=== PATIENT | female | born 1965 | race Caucasian/White ===

== ENCOUNTER 2021-08-09 20:48 | Observation (INO) | payer OTHER ==
[~2021-08-09] VITALS: Ht 160 cm; Wt 113.4 kg
[~2021-08-09 20:48] MED LIST: ASPI81CH PO; ASPI81EC PO; ATOR10; BP MED; CIPRO500 MG PO; CRUTCH4 XX; CYCL10 PO; Carvedilol12.5 MG PO; FISH1000; FURO20 PO; Flagyl500 MG PO; GABA300 PO; IBUP600 PO; MULVITMIND; Metformin HCl500 MG PO; Norco 5-325 Ta1 EACH PO; POTCHL20ER PO; PRAV20 PO; PROPRANOLOL PO; Percocet 5-3251 EACH PO; Ultram50 MG PO; ZOLP10 PO; ZOLP5; ZOLP5 PO; Zofran Odt4 MG SL
[2021-08-09 21:43] LABS: BASOPHILS ABSOLUTE AUTO 0.08 K/mm3 (0.00-0.23); BASOPHILS PERCENT AUTO 0 % (0-2); EOSINOPHILS PERCENT AUTO 0 % (0-6); Hematocrit 41.7 % (33.0-51.0); IMMATURE GRAN PERCENT AUTO 1 % (0-1); LYMPHOCYTES ABSOLUTE AUTO 3.35 K/mm3 (0.84-5.20); LYMPHOCYTES PERCENT AUTO 16 % (21-46); MONOCYTES ABSOLUTE AUTO 1.02 K/mm3 (0.16-1.47); MONOCYTES PERCENT AUTO 5 % (4-13); Mean Corpuscular HGB 24.6 pg (26.0-34.0); Mean Corpuscular HGB Conc 31.2 g/dL (31.5-36.5); Mean Corpuscular Volume 79 fL (80-100); Mean Platelet Volume 9.2 fL (9.1-12.4); NEUTROPHILS PERCENT AUTO 78 % (41-73); Platelet Count 446 K/mm3 (150-400); RDW Coefficient Variation 17.8 % (11.7-14.2); Red Blood Cell Count 5.28 M/mm3 (3.80-5.20); White Blood Cell Count 20.95 K/mm3 (4.00-11.30)
[2021-08-09 22:19] LABS: Alanine Aminotransfer (ALT/SGP 24 U/L (12-78); Albumin, Blood 3.3 g/dL (3.4-5.0); Albumin/Globulin Ratio 0.8 (0.8-1.8); Alk Phos 169 U/L (50-136); Anion Gap 6 mmol/L (6-16); Aspartate Aminotrans (AST/SGOT 14 U/L (12-37); Bilirubin, Total 0.5 mg/dL (0.1-1.0); Blood Urea Nitrogen 13 mg/dL (8-24); Bun/Creatinine Ratio 14.3 (12.0-20.0); CO2, Blood 31 mmol/L (21-32); Chloride, Blood 100 mmol/L (98-108); Creatinine, Blood 0.91 mg/dL (0.40-1.00); Globulin, Blood 4.1 g/dL (2.2-4.0); Glomerular Filtration Rate >60 (60-); Glucose, Blood 134 mg/dL (70-99); Potassium, Blood 4.1 mmol/L (3.5-5.5); Sodium, Blood 137 mmol/L (136-145); Total Protein, Blood 7.4 g/dL (6.4-8.2)
[2021-08-09 22:39] LABS: Source, Urine Clean Catch
[2021-08-09] MEDS ORDERED: ZOLP5 (22:40)
[2021-08-09] MEDS ORDERED: TRIA50 PO (22:40)
[2021-08-09] MEDS ORDERED: SPIRONOLACTONE50 MG PO (22:40)
[2021-08-09 22:42] LABS: Bilirubin, Urine Neg (Neg); Blood, Urine 3+ (Neg); Glucose Qualitative, Urine Neg (Neg); Ketones, Urine Neg (Neg); Leukocyte Esterase, Urine 1+ (Neg); Nitrite, Urine Neg (Neg); Protein, Urine Neg (Neg); Urobilinogen, Urine NORM (Normal)
[2021-08-09 22:49] LABS: Appearance, Urine Clear (Clear); Color, Urine Yellow (P-Yellow)
[2021-08-09 22:50] LABS: Bacteria Mod /hpf; Red Blood Cells, Urine 0-2 /hpf (0-2); Squamous Epithelial Cells Few /hpf (Few)
[2021-08-10 00:36] LABS: Influenza A, PCR NEGATIVE (NEGATIVE); Influenza B, PCR NEGATIVE (NEGATIVE); Resp Syncytial Virus, PCR NEGATIVE (NEGATIVE); SARS-Cov-2 (COVID-19) PCR, MMC NEGATIVE (NEGATIVE)
--- NOTE | 2021-08-10 01:00 | NUR ---
PT ARRIVED TO UNIT PT ARRIVED TO UNIT VIA BED, KILN STACKER ASSISTED W/ SBA TRANSFER. PT A&O X4, MINIMAL PAIN-PLAN TO MEDICATE PER EMAR PRN, AND FLUIDS RUNNING. REPORT RECIEVED VIA TIFFANIE NEWTON RN. PT ORIENTATED TO ROOM, CALL LIGHT W/IN REACH. VSS.
--- NOTE | 2021-08-10 04:26 | NUR ---
SHIFT SUMMARY PT A&O X4 & IN PLEASENT MOOD SINCE ARRIVAL. PT CURRENTLY NPO. STEADY GAIT W/ TRANSFER. DENIES N/V @ THIS TIME. BT PRESENT IN ALL 4 Q'S. TENDERNESS W/ LIGHT PALPATION TO ABD. VSS. CALL LIGHT W/IN REACH.
--- NOTE | 2021-08-10 14:44 | NUR ---
PT TRANSFERED TO [facility] FROM FLOOR VIA GURNY. History, Chart, Medications and Allergies reviewed before start of procedure. Lungs clear T/O to Auscultation. Patient confirms NPO status and agrees with scheduled surgery. Pre-Op teaching done. Pt verbalizes understanding.
--- NOTE | 2021-08-10 16:13 | NUR ---
08/10/21 1613 Rahsi Hanna PATIENT ON SCHEDULED ANTIBIOTICS
--- NOTE | 2021-08-10 17:30 | NUR ---
POST OP ARRIVES TO UNIT, STANDS TO TRANSFER TO BED w/ SBA. ALERT, ORIENTED, PLEASANT. DENIES PAIN OR N/V. ABD LAP SITES x 3. NO DRNG OR BRUISING NOTED TO SITES. LUNGS CLEAR BUT DIM IN BASES. 2L NC. CLEAR LQ's & SALTINES GIVEN. DECLINES PAIN MEDS.
--- NOTE | 2021-08-11 06:50 | NUR ---
POD 1 S/P LAP APPY. PT VSS T/O NIGHT, SATS >90% ON RA. INCISIONS CDI. PAIN MGD W/1 NORCO W/REP RELIEF. PT TRACI REG PO, NO C/O N/V, REP NO FLATUS YET. PT VOIDING URINE W/O DIFFICULTY. PT UP W/SBA, TRACI WELL. PT USING I/S AT BEDSIDE.
--- NOTE | 2021-08-11 10:11 | NUR ---
REPORTS EATING A REGULAR BREAKFAST THIS AM, STATES FEELING "BLOATED" NOW AND SOME NAUSEA, REFUSED ANY ANTIEMETIC AT THIS TIME, ENCOURAGED TO AMBULATE DOWN THE HALLS, 1 NORCO GIVEN FOR C/O 10/20 ABD PAIN, PT STATES WILL AMBULATE AFTER TAKING PAIN MED, CONT. TO MONITOR FOR ANY CHANGES.
[2021-08-11] MEDS ORDERED: AMOCLA875 PO (14:38)
[2021-08-11] MEDS ORDERED: Norco 5-325 Ta1 EACH PO (14:39)
--- NOTE | 2021-08-11 15:03 | NUR ---
DR. ADAIR IN TO SEE PT, AMBULATED DOWN HALLS TODAY, REPORTS FEELING BETTER, DC INSTRUCTIONS GIVEN, VERBALIZED UNDERSTANDING.
--- NOTE | 2021-08-11 15:03 | NUR ---
Pt. was alert and in bed. Pt. welcomed my "cold-call" visit. Pt. reported that she hoped to be discharged soon. PT. did not demonstrate spiritual distress. Established rapport and explored issues of catracho and belief. Pt. displayed evidence of resolve and motivation to heal. Pt. verbalized receptivity to certified alcohol counselor and gratitude for both the care she received and the visit. Prayed with pt.
== END 2021-08-11 15:31 | disposition home or self-care (01) ==
LOC: ER 20:48 → SURS 23:42 → ER 08-10 00:57 → SURS 08-10 01:17
PROVIDERS: Emergency Medicine; Physician Assistant; ADMIT Surgery
DX: K35.80 Unspecified acute appendicitis (principal); I10 Essential (primary) hypertension; R73.03 Prediabetes; E66.01 Morbid (severe) obesity due to excess calories; G47.33 Obstructive sleep apnea (adult) (pediatric); K76.0 Fatty (change of) liver, not elsewhere classified; Z90.49 Acquired absence of other specified parts of digestive tract; Z87.891 Personal history of nicotine dependence; Z20.822 Contact with and (suspected) exposure to COVID-19; Z68.41 Body mass index [BMI] 40.0-44.9, adult
CPT/HCPCS: 0241U; 36415; 74176; 80053; 81001; 83690; 85025; 87086; 93005; 93010; 94760; 96374; 96375; 99285-25; A9270; J0295; J0330; J1100; J1170; J1885; J2310; J2405; J2704; J3010; J7030; J7120

== ENCOUNTER 2023-07-02 21:04 | Inpatient (IN) | payer OTHER ==
[~2023-07-02] VITALS: Ht 160 cm; Wt 108.6 kg
[~2023-07-02 21:04] MED LIST changes: +AMOCLA875 PO; +SPIRONOLACTONE50 MG PO; +TRIA50 PO
[2023-07-02 21:41] LABS: BASOPHILS ABSOLUTE AUTO 0.07 K/mm3 (0.00-0.23); BASOPHILS PERCENT AUTO 1 % (0-2); EOSINOPHILS ABSOLUTE AUTO 0.01 K/mm3 (0.00-0.68); EOSINOPHILS PERCENT AUTO 0 % (0-6); Hematocrit 39.2 % (33.0-51.0); Hemoglobin 11.9 g/dL (11.5-16.0); IMMATURE GRAN ABSOLUTE AUTO 0.08 K/mm3 (0.00-0.10); IMMATURE GRAN PERCENT AUTO 1 % (0-1); LYMPHOCYTES ABSOLUTE AUTO 2.88 K/mm3 (0.84-5.20); LYMPHOCYTES PERCENT AUTO 19 % (21-46); MONOCYTES ABSOLUTE AUTO 0.83 K/mm3 (0.16-1.47); MONOCYTES PERCENT AUTO 6 % (4-13); Mean Corpuscular HGB 23.8 pg (26.0-34.0); Mean Corpuscular HGB Conc 30.4 g/dL (31.5-36.5); Mean Corpuscular Volume 78 fL (80-100); Mean Platelet Volume 9.8 fL (9.1-12.4); NEUTROPHILS ABSOLUTE AUTO 11.05 K/mm3 (1.96-9.15); NEUTROPHILS PERCENT AUTO 74 % (41-73); Platelet Count 432 K/mm3 (150-400); RDW Coefficient Variation 17.7 % (11.7-14.2); RDW Standard Deviation 49.7 fL (35.1-46.3); Red Blood Cell Count 5.01 M/mm3 (3.80-5.20); White Blood Cell Count 14.92 K/mm3 (4.00-11.30)
[2023-07-02 22:01] LABS: Albumin, Blood 3.3 g/dL (3.4-5.0); Albumin/Globulin Ratio 0.7 (0.8-1.8); Bilirubin, Total 0.4 mg/dL (0.1-1.0); Bun/Creatinine Ratio 18.6 (12.0-20.0); Calcium, Blood 8.9 mg/dL (8.5-10.1); Creatinine, Blood 0.86 mg/dL (0.40-1.00); Globulin, Blood 4.5 g/dL (2.2-4.0); Potassium, Blood 4.9 mmol/L (3.5-5.5); Total Protein, Blood 7.8 g/dL (6.4-8.2)
[2023-07-03 03:02] VITALS: BP 146/93
[2023-07-03 03:36] LABS: BASOPHILS ABSOLUTE AUTO 0.07 K/mm3 (0.00-0.23); BASOPHILS PERCENT AUTO 0 % (0-2); EOSINOPHILS ABSOLUTE AUTO 0.01 K/mm3 (0.00-0.68); EOSINOPHILS PERCENT AUTO 0 % (0-6); Hematocrit 38.3 % (33.0-51.0); Hemoglobin 11.6 g/dL (11.5-16.0); IMMATURE GRAN ABSOLUTE AUTO 0.07 K/mm3 (0.00-0.10); IMMATURE GRAN PERCENT AUTO 0 % (0-1); LYMPHOCYTES PERCENT AUTO 21 % (21-46); MONOCYTES ABSOLUTE AUTO 1.09 K/mm3 (0.16-1.47); MONOCYTES PERCENT AUTO 7 % (4-13); Mean Corpuscular HGB 23.7 pg (26.0-34.0); Mean Corpuscular HGB Conc 30.3 g/dL (31.5-36.5); Mean Corpuscular Volume 78 fL (80-100); Mean Platelet Volume 9.8 fL (9.1-12.4); NEUTROPHILS ABSOLUTE AUTO 11.68 K/mm3 (1.96-9.15); NEUTROPHILS PERCENT AUTO 72 % (41-73); Platelet Count 414 K/mm3 (150-400); RDW Coefficient Variation 17.2 % (11.7-14.2); RDW Standard Deviation 48.9 fL (35.1-46.3); White Blood Cell Count 16.32 K/mm3 (4.00-11.30)
[2023-07-03 04:13] LABS: Albumin, Blood 3.4 g/dL (3.4-5.0); Albumin/Globulin Ratio 0.8 (0.8-1.8); Bilirubin, Total 0.4 mg/dL (0.1-1.0); Bun/Creatinine Ratio 20.5 (12.0-20.0); Calcium, Blood 8.5 mg/dL (8.5-10.1); Creatinine, Blood 0.78 mg/dL (0.40-1.00); Globulin, Blood 4.4 g/dL (2.2-4.0); Potassium, Blood 3.7 mmol/L (3.5-5.5); Total Protein, Blood 7.8 g/dL (6.4-8.2)
[2023-07-03 05:40] LABS: Source, Urine Clean Catch
[2023-07-03 05:44] LABS: Appearance, Urine Clear (Clear); Bilirubin, Urine Neg (Neg); Blood, Urine 2+ (Neg); Glucose Qualitative, Urine Neg (Neg); Ketones, Urine Neg (Neg); Leukocyte Esterase, Urine Neg (Neg); Nitrite, Urine Neg (Neg); Protein, Urine Neg (Neg); Urobilinogen, Urine NORM (Normal)
[2023-07-03 05:50] LABS: Color, Urine Pale Yellow (P-Yellow)
[2023-07-03 05:57] LABS: Red Blood Cells, Urine 0-2 /hpf (0-2)
[2023-07-03 05:58] LABS: Bacteria Rare /hpf
[2023-07-03 05:59] LABS: Squamous Epithelial Cells Few /hpf (Few)
[2023-07-03 06:01] LABS: Hyaline Casts 0-2 /lpf (0-2)
[2023-07-03 08:10] VITALS: BP 143/95
[2023-07-03 16:17] VITALS: BP 142/79
[2023-07-03 19:15] VITALS: BP 143/76
[2023-07-04 04:30] VITALS: BP 143/73
[2023-07-04 05:10] LABS: BASOPHILS ABSOLUTE AUTO 0.06 K/mm3 (0.00-0.23); BASOPHILS PERCENT AUTO 1 % (0-2); EOSINOPHILS ABSOLUTE AUTO 0.01 K/mm3 (0.00-0.68); EOSINOPHILS PERCENT AUTO 0 % (0-6); Hemoglobin 11.8 g/dL (11.5-16.0); IMMATURE GRAN ABSOLUTE AUTO 0.07 K/mm3 (0.00-0.10); IMMATURE GRAN PERCENT AUTO 1 % (0-1); LYMPHOCYTES ABSOLUTE AUTO 2.44 K/mm3 (0.84-5.20); LYMPHOCYTES PERCENT AUTO 20 % (21-46); MONOCYTES ABSOLUTE AUTO 0.85 K/mm3 (0.16-1.47); MONOCYTES PERCENT AUTO 7 % (4-13); Mean Corpuscular HGB 23.3 pg (26.0-34.0); Mean Corpuscular HGB Conc 30.3 g/dL (31.5-36.5); Mean Corpuscular Volume 77 fL (80-100); Mean Platelet Volume 9.7 fL (9.1-12.4); NEUTROPHILS ABSOLUTE AUTO 8.95 K/mm3 (1.96-9.15); NEUTROPHILS PERCENT AUTO 72 % (41-73); Platelet Count 369 K/mm3 (150-400); RDW Coefficient Variation 17.2 % (11.7-14.2); RDW Standard Deviation 47.4 fL (35.1-46.3); Red Blood Cell Count 5.07 M/mm3 (3.80-5.20); White Blood Cell Count 12.38 K/mm3 (4.00-11.30)
--- NOTE | 2023-07-04 05:20 | NUR ---
REPORT RECEIVED VERIFIED, A/O IND IN ROOM. VSS AND IS CALLING TO MAKE NEEDS MET. PT IN GOOD SPIRITS AND WILL POSSIBLY BE DCED IN THE MORENING AFTER TORITO SCAN, TRAVON PT NPO. NO CHANGE IN CARDIAC CONDITION
[2023-07-04 05:37] LABS: Bun/Creatinine Ratio 20.8 (12.0-20.0); Calcium, Blood 8.5 mg/dL (8.5-10.1); Creatinine, Blood 0.63 mg/dL (0.40-1.00); Magnesium, Blood 2.1 mg/dL (1.6-2.4); Phosphorus, Blood 3.9 mg/dL (2.5-4.9); Potassium, Blood 3.2 mmol/L (3.5-5.5)
[2023-07-04 07:33] VITALS: BP 160/89
[2023-07-04 09:47] LABS: CHOL/HDL RATIO 4.7; Cholesterol 150 mg/dL (50-200); HDL Cholesterol 32 mg/dL (>39); LDL/HDL RATIO 2.6; Low Density Lipoprotein Chol 84 mg/dL (0-110); Triglycerides 169 mg/dL (30-160); Very Low Density Lipoprot Chol 33 mg/dL (6-32)
[2023-07-04 16:55] VITALS: BP 142/82
--- NOTE | 2023-07-04 17:57 | NUR ---
SHIFT SUMMARY: NO ACUTE EVENTS. NO EVENTS ON TELEMETRY, SR 60-70'S. DENIED CHEST PAIN. SOB HAS IMPROVED SINCE YESTERDAY. POTASSIUM REPLACED. HAD FIRST HALF OF LEXISCAN TODAY. INDEPENDENT IN ROOM.
[2023-07-04 19:26] VITALS: BP 149/80
[2023-07-05 04:18] VITALS: BP 155/90
[2023-07-05 05:48] LABS: BASOPHILS ABSOLUTE AUTO 0.06 K/mm3 (0.00-0.23); BASOPHILS PERCENT AUTO 1 % (0-2); EOSINOPHILS PERCENT AUTO 0 % (0-6); Hematocrit 42.6 % (33.0-51.0); Hemoglobin 13.1 g/dL (11.5-16.0); IMMATURE GRAN ABSOLUTE AUTO 0.07 K/mm3 (0.00-0.10); IMMATURE GRAN PERCENT AUTO 1 % (0-1); LYMPHOCYTES ABSOLUTE AUTO 2.61 K/mm3 (0.84-5.20); LYMPHOCYTES PERCENT AUTO 20 % (21-46); MONOCYTES PERCENT AUTO 9 % (4-13); Mean Corpuscular HGB 23.7 pg (26.0-34.0); Mean Corpuscular HGB Conc 30.8 g/dL (31.5-36.5); Mean Corpuscular Volume 77 fL (80-100); NEUTROPHILS ABSOLUTE AUTO 9.13 K/mm3 (1.96-9.15); NEUTROPHILS PERCENT AUTO 70 % (41-73); Platelet Count 428 K/mm3 (150-400); RDW Coefficient Variation 17.7 % (11.7-14.2); RDW Standard Deviation 46.4 fL (35.1-46.3); Red Blood Cell Count 5.53 M/mm3 (3.80-5.20); White Blood Cell Count 12.97 K/mm3 (4.00-11.30)
[2023-07-05 06:13] LABS: Bun/Creatinine Ratio 28.8 (12.0-20.0); Calcium, Blood 8.5 mg/dL (8.5-10.1); Creatinine, Blood 0.66 mg/dL (0.40-1.00); Potassium, Blood 3.6 mmol/L (3.5-5.5)
--- NOTE | 2023-07-05 06:39 | NUR ---
SHIFT SUMMARY PT IS HERE WITH NEW ONSET CHF. PT IS ALERT AND ORIENTED AND IS INDEPENDENT IN HER ROOM. PT HAS BEEN NPO SINCE MIDNIGHT FOR THE SECOND PART OF HER STRESS TEST THIS AM. TELEMETRY DESK REPORTS SINUS RHYTHM. NO ACUTE EVENTS OCCURRED THROUGHOUT THE SHIFT, VITAL SIGNS HAVE BEEN STABLE. BED IS IN LOWEST POSITION, CALL LIGHT IS WITHIN REACH.
[2023-07-05 07:17] VITALS: BP 146/86
[2023-07-05 16:46] VITALS: BP 141/90
--- NOTE | 2023-07-05 17:18 | NUR ---
SHIFT SUMMARY; PATIENT HAD 2ND PART OF STRESS TEST. CONSULT FOR CARDIOLOGY IS ORDERED AFTER TEST AND IS NOTIFIED VIA ANSWERING SERVICE. PER PATIENT WILL GO TO THE PROMOTIONS SPECIALIST IN THE AM TOMORROW. FAMILY MEMBERS VISIT THIS PATIENT TODAY. PRESTIDIGITATOR GOES TO ROOM AND STRONG SMELL OF CIGARETTES NOTED. SMELL IS OVERWHELMING AND THIS RN ASKS SON IF HE HAS BRICK OFF BEARER AND CIGARETTES HE SAYS YES BUT WILL NOT SURRENDER THEM. THIS RN ASKS HIM TO LEAVE HOSPITAL. HE COMPLIES. PATIENT DENIES HER SON OR HIS GIRLFRIEND WERE SMOKING.
[2023-07-05 19:27] VITALS: BP 136/83
[2023-07-06] VITALS (13 sets, daily range): BP systolic 108–163; BP diastolic 65–87
[2023-07-06 05:24] LABS: BASOPHILS ABSOLUTE AUTO 0.09 K/mm3 (0.00-0.23); BASOPHILS PERCENT AUTO 1 % (0-2); EOSINOPHILS ABSOLUTE AUTO 0.01 K/mm3 (0.00-0.68); EOSINOPHILS PERCENT AUTO 0 % (0-6); Hematocrit 45.6 % (33.0-51.0); IMMATURE GRAN ABSOLUTE AUTO 0.06 K/mm3 (0.00-0.10); IMMATURE GRAN PERCENT AUTO 0 % (0-1); LYMPHOCYTES ABSOLUTE AUTO 3.12 K/mm3 (0.84-5.20); LYMPHOCYTES PERCENT AUTO 20 % (21-46); MONOCYTES ABSOLUTE AUTO 1.24 K/mm3 (0.16-1.47); MONOCYTES PERCENT AUTO 8 % (4-13); Mean Corpuscular HGB 23.5 pg (26.0-34.0); Mean Corpuscular HGB Conc 30.7 g/dL (31.5-36.5); Mean Corpuscular Volume 76 fL (80-100); Mean Platelet Volume 9.6 fL (9.1-12.4); NEUTROPHILS ABSOLUTE AUTO 11.09 K/mm3 (1.96-9.15); NEUTROPHILS PERCENT AUTO 71 % (41-73); Platelet Count 501 K/mm3 (150-400); RDW Coefficient Variation 18.2 % (11.7-14.2); RDW Standard Deviation 46.2 fL (35.1-46.3); Red Blood Cell Count 5.97 M/mm3 (3.80-5.20); White Blood Cell Count 15.61 K/mm3 (4.00-11.30)
[2023-07-06 05:54] LABS: Bun/Creatinine Ratio 26.7 (12.0-20.0); Calcium, Blood 8.9 mg/dL (8.5-10.1); Creatinine, Blood 0.64 mg/dL (0.40-1.00); Potassium, Blood 3.7 mmol/L (3.5-5.5)
--- NOTE | 2023-07-06 06:44 | NUR ---
SHIFT SUMMERY, PT RESTING IN BED. PT HAS CALL LIGHT IN REACH. PT HAS NEW IV TO LEFT HAND AREA AND PT HAS BEEN NPO FROM 0000 ON.
--- NOTE | 2023-07-06 11:10 | NUR ---
REPROT RECIEVED FROM MARIA LUISA MARTINEZ AT 100. PT PAULA IN PROCEDURE.
--- NOTE | 2023-07-06 11:39 | NUR ---
PT ARRIVED FROM [facility] AT 1130 VIA WHEELCHAIR AND RA. REPORT RECIEVED FROM CATHJESSENIA RN AT BEDSIDE. PT ABLE TO TRANSFER SELF FROM WHEELCHAIR AND TO BED ON HER OWN. RIGHT RADIAL SITE C/D/I AND WITHOUT HEMATOMA. PT REPORTS TENDERNESS ABOVE AND BELOW SITE. PT INSTRUCTED NOT TYRA RIGHT WRIST AND INFORMED ABOUT FREQUENT VITALS AND ASSESSMENTS.
--- NOTE | 2023-07-06 17:03 | NUR ---
SHIFT SUMMARY PT A/OX 4 AND COOPERATIVE OF CARE. VSS SINCE ARRIVAL TO UNIT FROM [facility]. PT SATS IN THE 90'S ON RA, NO REPORT OF SOB/DYSPNEA. NO REPORT OF CHEST PAIN/PRESSURE SINCE ARRIVAL TO UNIT. PT RECIEVED AGIO TODAY, NO INTERVENTIONS. PT ABLE TO EXPRESS NEEDS AND CALLS APPROPIATE. RIGHT RADIAL SITE C/D/I. PT EXPRESSED ANXIETY ABOUT WNATING TO GO HOME, TOLD PT THAT POSSIBLE IN THE MORNING DUE TO DOSE CHANGES TO MEDS. PT INDEPENDENT IN ROOM.
[2023-07-07 01:01] VITALS: BP 135/69
[2023-07-07 03:56] VITALS: BP 142/88
--- NOTE | 2023-07-07 04:18 | NUR ---
SUMMARY NO NEW ISSUES NOTED. PT HAS BEEN SLEEPING FOR MOST OF SHIFT. PT HAS BEEN UP TO VOID. PT HAD A ALVA AND TYLENOL WAS ORDERED. PT SLEEPING AND IN NO DISTRESS. CALL LIGHT IN REACH.
[2023-07-07 04:49] LABS: Bun/Creatinine Ratio 22.2 (12.0-20.0); Calcium, Blood 8.9 mg/dL (8.5-10.1); Creatinine, Blood 0.72 mg/dL (0.40-1.00); Potassium, Blood 3.8 mmol/L (3.5-5.5)
[2023-07-07 08:01] VITALS: BP 118/82
[2023-07-07] MEDS ORDERED: ATOR40TA PO (12:18)
[2023-07-07] MEDS ORDERED: FURO40 PO (12:19)
[2023-07-07] MEDS ORDERED: ENTRESTO 97 MG1 EACH PO (12:19)
[2023-07-07] MEDS ORDERED: JARDIANCE25 MG PO (12:19)
[2023-07-07] MEDS ORDERED: Carvedilol12.5 MG PO (12:19)
[2023-07-07] MEDS ORDERED: ALDACTONE25 MG PO (12:21)
--- NOTE | 2023-07-07 14:32 | NUR ---
DISCHARGE UPDATE DISCHARGE PACKET GONE OVER WITH PT AND PT DAUGHTER 1400. PT DISHCARGED AT 1420 VIA WHEELCHAIR AND ON RA. PT ABLE TO TRANSFER SELF TO AND FROM WHEELCHAIR ON HER OWN, TOLERATED WELL. PT INSTRUCTED NOT TO USE RIGHT ARM FOR HEAVY LEIFTING OR TO ALLOW RIGHT ARM TO BE SUBMERGED IN WATER. PT INSTRUCTED TO APPLY CONSTANT PRESSURE IF RADIAL SITE BLEEDS AND TO RETURN TO ED IF BLEEDING DOES NOT STOP, PT AGREED. PT BELONGINGS AND DISCHARGE PACKET WITH PT AT TIME OF DISCHARGE.
== END 2023-07-07 14:31 | disposition home or self-care (01) | DRG 286 ==
LOC: ER 21:04 → MEDS 21:05 → PCU 07-06 11:29
PROVIDERS: Internal Medicine; Internal Medicine Cardiovascular Disease; Physician Assistant; ADMIT Internal Medicine
PROC: B2111ZZ Fluoroscopy of Multiple Coronary Arteries using Low Osmolar Contrast (ICD-10-PCS; principal; 2023-07-06)
PROC: 4A023N8 Measurement of Cardiac Sampling and Pressure, Bilateral, Percutaneous Approach (ICD-10-PCS; 2023-07-06)
PROC: 02HP32Z Insertion of Monitoring Device into Pulmonary Trunk, Percutaneous Approach (ICD-10-PCS; 2023-07-06)
PROC: 4A133B3 Monitoring of Arterial Pressure, Pulmonary, Percutaneous Approach (ICD-10-PCS; 2023-07-06)
PROC: 4A1239Z Monitoring of Cardiac Output, Percutaneous Approach (ICD-10-PCS; 2023-07-06)
DX: I11.0 Hypertensive heart disease with heart failure (principal); I50.41 Acute combined systolic (congestive) and diastolic (congestive) heart failure; I42.0 Dilated cardiomyopathy; E11.9 Type 2 diabetes mellitus without complications; E66.01 Morbid (severe) obesity due to excess calories; E78.5 Hyperlipidemia, unspecified; F19.10 Other psychoactive substance abuse, uncomplicated; R79.1 Abnormal coagulation profile; I27.20 Pulmonary hypertension, unspecified; I25.10 Atherosclerotic heart disease of native coronary artery without angina pectoris; Z68.39 Body mass index [BMI] 39.0-39.9, adult; Z87.891 Personal history of nicotine dependence
CPT/HCPCS: 36415; 71046; 71260; 76937; 78452; 80048; 80053; 80061; 81001; 83036; 83735; 83880; 84100; 84484; 85025; 85379; 93005; 93010; 93017; 93460; 93970; 96372; 96374; 96376; 99152; 99285-25; A9270; A9500; C1769; C1887; C1894; C8929; G0378; J0706; J1644; J1650; J1940; J2250; J2785; J3010; J7030; J7050; Q9957; Q9967

== ENCOUNTER 2025-06-23 07:41 | Day surgery (SDC) | payer OTHER ==
[~2025-06-23] VITALS: Ht 160 cm; Wt 93.3 kg
[2025-06-23] VITALS (12 sets, daily range): BP systolic 99–136; BP diastolic 51–86
[~2025-06-23 07:41] MED LIST changes: +ALDACTONE25 MG PO; +ATOR40TA PO; +CeFAZolin Sodium 2,000 MG in NS 100 ML IV SCH; +Chlorhexidine Mouth Care 15 ML UDC MT SCH; +ENTRESTO 97 MG1 EACH PO; +JARDIANCE25 MG PO; +OZEMPIC0.25 MG/02 SC; +Ropivacaine 0.5% HCl/Pf 123.125 MG,EPINEPHrine HCL 0.25 MG,Ketorolac Tromethamine 15 MG... INFIL SCH; +Tranexamic Acid 100 ML IV SCH
--- NOTE | 2025-06-23 08:16 | NUR ---
Ambulatory in Day Surgery WITH CANE. Pre-Op teaching done. Pt verbalizes understanding. History, Chart, Medications and Allergies reviewed before start of procedure. Patient States Post-Procedure ride home has been arranged. Patient confirms NPO status and agrees with scheduled surgery.
[2025-06-23] MEDS ORDERED: FLU VACC TS2025-26(6MOS UP)/PF 45 MCG/0.5 ML SYRINGE IM SCH (09:40)
[2025-06-23] MEDS ORDERED: Ondansetron HCl 2 MG / ML 2ML Vial ONE (09:45)
[2025-06-23] MEDS ORDERED: Metoclopramide HCl 5MG / ML 2ML Vial ONE (09:45)
[2025-06-23] MEDS ORDERED: HYDROmorphone HCl/Pf 1MG SYR IV PRN ×2 (09:45→11:50)
[2025-06-23] MEDS ORDERED: Prochlorperazine Edisylate 10 mg Vial IV PRN (09:50)
[2025-06-23] MEDS ORDERED: Metoclopramide HCl 5MG / ML 2ML Vial IV PRN ×2 (09:50→11:50)
[2025-06-23] MEDS ORDERED: Magnesium Hydroxide Conc 10 ML UDC PO PRN (09:50)
[2025-06-23] MEDS ORDERED: Ondansetron HCl 2 MG / ML 2ML Vial IV PRN ×2 (09:50→11:45)
[2025-06-23] MEDS ORDERED: Midazolam HCl 1MG / ML 2ML Vial ONE (10:04)
[2025-06-23] MEDS ORDERED: ePHEDrine Sulfate 50 MG/ML 1ML Injection ONE (10:38)
[2025-06-23] MEDS ORDERED: Insulin Regular 100 UNIT/ML 10ML Vial SC SCH (11:30)
[2025-06-23] MEDS ORDERED: FentaNYL Citrate 50 MCG/ML 2 ML Injection ONE (11:45)
[2025-06-23] MEDS ORDERED: Morphine Sulfate 4 MG/1 ML Injection IV PRN (11:45)
[2025-06-23] MEDS ORDERED: FentaNYL Citrate 50 MCG/ML 2 ML Injection IV PRN ×2 (11:45→11:50)
[2025-06-23] MEDS ORDERED: ePHEDrine Sulfate 50 MG/ML 1ML Injection IV PRN (11:50)
--- NOTE | 2025-06-23 13:12 | NUR ---
POST OP: REPORT RECEIVED FROM CREATIVE LEAD. PT TO UNIT AT 1230, A/O, DROWSY BUT AWAKES EASILY, PT SAT UP AND ATE LUNCH. DENIES PAIN, SURGICAL SITE WNL. VSS CALL LIGHT IN REACH
[2025-06-23] MEDS ORDERED: ASPI81CH PO (14:05)
[2025-06-23] MEDS ORDERED: CeFAZolin Sodium 2,000 MG in NS 100 ML IV SCH (18:00)
[2025-06-23] MEDS ORDERED: Ketorolac Tromethamine 15mg Vial IV SCH (18:00)
--- NOTE | 2025-06-23 18:22 | NUR ---
SUMMARY: PT WAS SLOW TO HAVE FULL SENSATION AND BE FULLY AWAKE. TONIGHT ABLE TO WALK IN ROOM AND VOID, A/O. PAIN INCREASED WITH MOVEMENT, MEDICATED PER EMAR. HR CONTINUES TO TREND 45-50, ASYMPTOMIC. INCISION WNL. PT USES CALL LIGHT
[2025-06-24 02:50] VITALS: BP 132/59
--- NOTE | 2025-06-24 04:23 | NUR ---
SHIFT SUMMARY POD 1 S/P RIGHT SAV. DRESSING CDI. POLAR PACK TO RIGHT THIGH T/O SHIFT, SOME SWELLING NOTED. PAIN MANAGED PER EMAR. ABX INFUSED. IV PATENT/SL. PT IS VOIDING AND TRACI PO INTAKE. AMBULATING IN ROOM, HALLWAYS, AND ABLE TO WALK STAIRS IN GYM; TRACI WELL. PT REPORTS BEING CONCERNED ABOUT HAVING 3 FLIGHTS OF STAIRS AT HOME. PLAN TO WORK WITH THERAPY AND D/C HOME TODAY. WILL MONITOR FOR CHANGES/CONCERNS AND GIVE REPORT TO ONCOMING RN.
[2025-06-24 05:37] LABS: BASOPHILS ABSOLUTE AUTO 0.04 K/mm3 (0.00-0.23); BASOPHILS PERCENT AUTO 0 % (0-2); EOSINOPHILS ABSOLUTE AUTO 0.05 K/mm3 (0.00-0.68); EOSINOPHILS PERCENT AUTO 1 % (0-6); Hematocrit 33.7 % (33.0-51.0); Hemoglobin 10.2 g/dL (11.5-16.0); IMMATURE GRAN ABSOLUTE AUTO 0.03 K/mm3 (0.00-0.10); IMMATURE GRAN PERCENT AUTO 0 % (0-1); LYMPHOCYTES ABSOLUTE AUTO 1.89 K/mm3 (0.84-5.20); LYMPHOCYTES PERCENT AUTO 17 % (21-46); MONOCYTES ABSOLUTE AUTO 0.89 K/mm3 (0.16-1.47); MONOCYTES PERCENT AUTO 8 % (4-13); Mean Corpuscular HGB Conc 30.3 g/dL (31.5-36.5); Mean Corpuscular Volume 78 fL (80-100); NEUTROPHILS ABSOLUTE AUTO 8.12 K/mm3 (1.96-9.15); NEUTROPHILS PERCENT AUTO 74 % (41-73); NRBC ABSOLUTE 0.00 K/mm3 (0.00-0.02); NRBC Auto 0.0 /100 WBC (0.0-0.2); Platelet Count 311 K/mm3 (150-400); RDW Coefficient Variation 17.9 % (11.7-14.2); RDW Standard Deviation 50.0 fL (35.1-46.3)
[2025-06-24 06:15] LABS: Anion Gap 5.0 mmol/L (3-11); Blood Urea Nitrogen 13.0 mg/dL (8-24); CO2, Blood 31.0 mmol/L (21-32); Calcium, Blood 8.0 mg/dL (8.5-10.1); Chloride, Blood 103.0 mmol/L (98-108); Creatinine, Blood 0.89 mg/dL (0.40-1.00); Glucose, Blood 122.0 mg/dL (70-99); Potassium, Blood 3.3 mmol/L (3.5-5.5); Sodium, Blood 136.0 mmol/L (136-145)
[2025-06-24 07:03] VITALS: BP 112/63
--- NOTE | 2025-06-24 10:19 | NUR ---
DISCHARGE: PT CLEARED BY THERAPY. DC INSTRUCTIONS GIVEN, IV DC'D BY DYE RANGE FEEDER. PT LEFT UNIT VIA WHEELCHAIR AT ABOUT 0900 WITH DAUGHTER AND DYE RANGE FEEDER
== END 2025-06-24 09:33 | disposition home or self-care (01) ==
LOC: ORSCMMR 07:41 → ORD 09:15 → SURS 12:45 → ORSCMMR 06-24 09:33
PROVIDERS: Orthopaedic Surgery
PROC: 0SR90JA Replacement of Right Hip Joint with Synthetic Substitute, Uncemented, Open Approach (ICD-10-PCS; principal; 2025-06-23 09:15)
DX: M16.11 Unilateral primary osteoarthritis, right hip (principal); E11.9 Type 2 diabetes mellitus without complications; I42.0 Dilated cardiomyopathy; Z79.899 Other long term (current) drug therapy; Z79.85 Long-term (current) use of injectable non-insulin antidiabetic drugs; Z87.891 Personal history of nicotine dependence; Z68.36 Body mass index [BMI] 36.0-36.9, adult
CPT/HCPCS: 27130; 0055T; 72170; 80048; 82947; 85025; 97110; 97116; 97162; A9270; C1713; C1776; J0166; J0690; J0735; J1885; J2250; J2405; J2765; J2795; J3010; J7120